=== PATIENT | male | born 1960 | race Hispanic/Latino ===

== ENCOUNTER 2021-01-02 06:00 | Day surgery (SDC) | payer BC ==
[2020-12-25 12:08] LABS: BASOPHILS % (AUTO) 1.8 % (0.0-5.0); EOSINOPHILS % (AUTO) 1.7 % (0.0-8.0); HEMATOCRIT 44.2 % (42-54); MEAN CORPUSCULAR HEMOGLOBIN 30.9 pg (27.0-33.0); MEAN CORPUSCULAR HGB CONC 34.2 g/dL (32.0-36.0); MEAN CORPUSCULAR VOLUME 90.4 fL (79-99); MONOCYTES % (AUTO) 7.4 % (3.0-13.0); NEUTROPHILS % (AUTO) 54.8 % (40.0-77.0); PLATELET COUNT (AUTO) 289 K/uL (130-400); RED BLOOD CELL COUNT(AUTO) 4.89 MIL/uL (4.50-6.20); WHITE BLOOD COUNT (AUTO) 6.5 K/uL (4.8-10.8)
[2020-12-25 12:15] LABS: CREATININE 1.5 mg/dL (0.5-1.5); POTASSIUM 4.8 mmol/L (3.5-5.1)
[2021-01-01 11:41] VITALS: BP 141/74
[~2021-01-02] VITALS: Ht 180.3 cm; Wt 116.1 kg
[2021-01-02] VITALS (17 sets, daily range): BP systolic 114–154; BP diastolic 64–88
[~2021-01-02 06:00] MED LIST: ACET-2743 PO; AEC81 PO; CEFAZOLIN SODIUM 1 GM VIAL IVP SCH; LACTATED RINGERS 1000ML 1,000 ML IV SCH; METF500S7 PO; METO-391 PO; ROSU5TAB12 PO; TICA90TA PO; TRAM50TA4 PO
[2021-01-02] MEDS ORDERED: SODIUM CHLORIDE 0.9% 1000ML 1,000 ML IV ONE (06:52)
[2021-01-02] MEDS ORDERED: LIDOCAINE PF 2% 5ML ABBOJECT ONE (07:39)
[2021-01-02] MEDS ORDERED: SUCCINYLCHOLINE CHLORIDE 20 MG/ML 10 ML VIAL ONE (07:39)
[2021-01-02] MEDS ORDERED: ROCURONIUM 10MG/1ML SYR 10 MG/ML ML ONE (07:40)
[2021-01-02] MEDS ORDERED: FENTANYL CITRATE PF 50 MCG/1 ML 2ML VIAL ONE ×2 (07:40→08:37)
[2021-01-02] MEDS ORDERED: MIDAZOLAM HCL 1 MG/ML 2ML VIAL ONE (07:40)
[2021-01-02] MEDS ORDERED: PROPOFOL 10 MG/ML 20ML VIAL IV ONE (07:40)
[2021-01-02] MEDS ORDERED: LOSA25TA41 PO (07:45)
[2021-01-02] MEDS ORDERED: LIDOCAINE 1%-EPI 1:100,000 20 ML VIAL IJ ONE (07:50)
[2021-01-02] MEDS ORDERED: EPHEDRINE SULFATE 50 MG/ML AMPULE ONE (08:38)
[2021-01-02] MEDS ORDERED: ONDANSETRON HCL 4 MG/2 ML VIAL ONE (09:04)
[2021-01-02] MEDS ORDERED: BUPIVACAINE/PF 0.25% 30ML VIAL IJ ONE (09:07)
== END 2021-01-02 11:00 | disposition home or self-care (01) ==
LOC: DAH 06:00
PROVIDERS: ATTEND Orthopaedic Surgery
DX: T84.54XA Infection and inflammatory reaction due to internal left knee prosthesis, initial encounter (principal); E11.9 Type 2 diabetes mellitus without complications; E78.00 Pure hypercholesterolemia, unspecified; I10 Essential (primary) hypertension; I25.10 Atherosclerotic heart disease of native coronary artery without angina pectoris; E66.9 Obesity, unspecified; M67.462 Ganglion, left knee; M71.062 Abscess of bursa, left knee; Z20.828 Contact with and (suspected) exposure to other viral communicable diseases; Y83.8 Other surgical procedures as the cause of abnormal reaction of the patient, or of later complication, without mention of misadventure at the time of the procedure
CPT/HCPCS: 20680; 36415; 73562; 80048; 82948 ×2; 85025; 87070; 87076; 87205; A4215; A4221; A4222; A4223; A4606; A4663; A6260; C9803; J0330; J0690; J2001; J2250; J2405; J2704; J3010 ×2; J3490 ×2; J7030; U0003